=== PATIENT | female | born 1975 | race Caucasian/White ===

== ENCOUNTER 2018-03-13 13:03 | Emergency (ER) | payer MEDICAID ==
[~2018-03-13] VITALS: Ht 162.6 cm; Wt 54.5 kg
[~2018-03-13 13:03] MED LIST: ALBU8.5H8 INH; ASCO500C15 PO; CARV3.122 PO; COU5T PO; DIGO125T78 PO; FURO-150 PO; NITR0.4T48 SL; PRAV40TA3 PO; SPIR25TA5 PO
[2018-03-13 13:18] VITALS: BP 142/82
[2018-03-13] MEDS ORDERED: AMOX-580 PO (13:33)
== END 2018-03-13 13:45 | disposition home or self-care (01) ==
LOC: ER 13:09
DX: K04.7 Periapical abscess without sinus (principal); F12.90 Cannabis use, unspecified, uncomplicated; F15.90 Other stimulant use, unspecified, uncomplicated; I10 Essential (primary) hypertension; J45.909 Unspecified asthma, uncomplicated; Z86.14 Personal history of Methicillin resistant Staphylococcus aureus infection; Z88.1 Allergy status to other antibiotic agents; Z79.899 Other long term (current) drug therapy; Z56.0 Unemployment, unspecified
CPT/HCPCS: 99283

== ENCOUNTER 2018-03-23 05:08 | Emergency (ER) | payer MEDICAID ==
[~2018-03-23] VITALS: Ht 157.5 cm; Wt 61.0 kg
[~2018-03-23 05:08] MED LIST changes: +AMOX-580 PO
[2018-03-23] MEDS ORDERED: HYDROcodone/acetaminophen 10/325mg tab PO ONE (05:25)
[2018-03-23] MEDS ORDERED: ondansetron 4mg rapidly disintigrating tab PO ONE (05:50)
[2018-03-23] MEDS ORDERED: propofol 10mg/ml 20ml vial IV ONE (06:05)
[2018-03-23] MEDS ORDERED: HYDR-3965 PO (07:22)
[2018-03-23] MEDS ORDERED: ketorolac tromethamine 15mg/ml inj. IV ONE (07:25)
[2018-03-23] MEDS ORDERED: MELO-100 PO (07:25)
[2018-03-23 07:50] VITALS: BP 134/79
== END 2018-03-23 08:08 | disposition home or self-care (01) ==
LOC: ER 05:08
DX: S52.612A Displaced fracture of left ulna styloid process, initial encounter for closed fracture (principal); S52.542A Smith's fracture of left radius, initial encounter for closed fracture; I50.9 Heart failure, unspecified; I11.0 Hypertensive heart disease with heart failure; J45.909 Unspecified asthma, uncomplicated; F12.90 Cannabis use, unspecified, uncomplicated; F15.90 Other stimulant use, unspecified, uncomplicated; Z56.0 Unemployment, unspecified; Z88.1 Allergy status to other antibiotic agents; Z79.01 Long term (current) use of anticoagulants; Z79.899 Other long term (current) drug therapy; V29.9XXA Motorcycle rider (driver) (passenger) injured in unspecified traffic accident, initial encounter; Y93.89 Activity, other specified; Y92.89 Other specified places as the place of occurrence of the external cause; Y99.8 Other external cause status
CPT/HCPCS: 25650; 73100; 73110; 96374; 99152; 99285; J1885; J2704; J7030

== ENCOUNTER 2018-03-30 22:00 | Emergency (ER) | payer MEDICAID ==
[~2018-03-30] VITALS: Ht 157.5 cm; Wt 60.0 kg
[~2018-03-30 22:00] MED LIST changes: +HYDR-3965 PO; +MELO-100 PO
[2018-03-31 00:44] VITALS: BP 128/79
== END 2018-03-31 00:47 | disposition home or self-care (01) ==
LOC: ER 22:00
DX: S52.615D Nondisplaced fracture of left ulna styloid process, subsequent encounter for closed fracture with routine healing (principal); S52.542D Smith's fracture of left radius, subsequent encounter for closed fracture with routine healing; I10 Essential (primary) hypertension; J45.909 Unspecified asthma, uncomplicated; I50.9 Heart failure, unspecified; F12.90 Cannabis use, unspecified, uncomplicated; F15.90 Other stimulant use, unspecified, uncomplicated; Z88.1 Allergy status to other antibiotic agents; Z79.899 Other long term (current) drug therapy; Z79.01 Long term (current) use of anticoagulants; Z56.0 Unemployment, unspecified; V19.9XXD Pedal cyclist (driver) (passenger) injured in unspecified traffic accident, subsequent encounter
CPT/HCPCS: 99282; A6449

== ENCOUNTER 2018-04-05 09:21 | Outpatient (CLI) | payer MEDICAID ==
[2018-04-05 09:28] VITALS: BP 123/87
== END 2018-04-05 10:19 | disposition home or self-care (01) ==
LOC: ORTHO 09:21
PROVIDERS: ATTEND Nurse Practitioner Family
DX: S52.542A Smith's fracture of left radius, initial encounter for closed fracture (principal); E11.9 Type 2 diabetes mellitus without complications; E78.00 Pure hypercholesterolemia, unspecified; J44.9 Chronic obstructive pulmonary disease, unspecified; F41.9 Anxiety disorder, unspecified; F17.210 Nicotine dependence, cigarettes, uncomplicated; Z88.8 Allergy status to other drugs, medicaments and biological substances; X58.XXXA Exposure to other specified factors, initial encounter; Y93.89 Activity, other specified; Y92.89 Other specified places as the place of occurrence of the external cause; Y99.8 Other external cause status
CPT/HCPCS: 99215

== ENCOUNTER 2018-04-18 10:19 | Outpatient (CLI) | payer MEDICAID ==
[~2018-04-18] VITALS: Ht 157.5 cm; Wt 61.2 kg
[~2018-04-18 10:19] MED LIST changes: -AMOX-580 PO
[2018-04-18] MEDS ORDERED: NO HOME MEDS (11:21)
[2018-04-18 11:28] LABS: MEAN CORPUSCULAR HGB CONC 30.1 % (33.0-36.5); MEAN CORPUSCULAR VOLUME 56.4 FL (78-98); PRE OP HEMATOCRIT 30.6 % (35.0-45.0); RED BLOOD COUNT 5.43 X10'6 (4.20-5.60); RED CELL DISTRIBUTION WIDTH 22.6 % (11.5-14.5)
[2018-04-18 11:44] LABS: ALBUMIN 3.7 G/DL (3.4-5.0); ALBUMIN/GLOBULIN RATIO 0.9 (1.1-1.5); ALKALINE PHOSPHATASE 95 IU/L (46-116); BLOOD UREA NITROGEN 16 MG/DL (7-18); BUN/CREATININE RATIO 14.8 (6.6-38.0); CHLORIDE 106 MMOL/L (99-107); CREATININE 1.08 MG/DL (0.40-0.90); PRE OP ALT 27 U/L (30-65); PRE OP ANION GAP 10 (8-16); PRE OP AST 29 U/L (10-37); PRE OP BILIRUB, TOTAL 0.4 MG/DL (0.0-1.0); PRE OP GLUCOSE 75 MG/DL (70-104); PRE OP POTASSIUM 3.8 MMOL/L (3.4-5.1); PRE OP SODIUM 142 MMOL/L (135-145); TOTAL CARBON DIOXIDE 25.7 MMOL/L (24-32); eGFR 55 ML/MIN
[2018-04-18 11:46] LABS: PRE OP HEMOGLOBIN 9.2 g/dL (12.0-16.0)
[2018-04-18 11:54] LABS: LARGE PLATELETS FEW; PLATELET ESTIMATE NORMAL; TOTAL CELLS COUNTED 100
[2018-04-18 11:55] LABS: MICROCYTOSIS 3+; TARGET CELLS 1+
[2018-04-18 11:56] LABS: ELLIPTOCYTES 1+; HYPOCHROMASIA 2+
[2018-04-18 11:57] LABS: SCHISTOCYTES 1+
[2018-04-18 11:58] LABS: ANISOCYTOSIS 3+
[2018-04-18 12:02] LABS: PRE OP PLATELET COUNT 327 X10'3 (140-440)
[2018-04-20] MEDS ORDERED: ringers solution, lacted 1,000 ML IV SCH (05:00)
[2018-04-20] MEDS ORDERED: albuterol 2.5 MG/3 ML nebule NEB ONE (05:30)
[2018-04-20] MEDS ORDERED: Cefazolin 2GM/50ML dext iso,osmotic IVPB IV ONE (05:30)
[2018-04-20] MEDS ORDERED: VANCOMYCIN INJ 1000 MG in NORMAL SALINE 250ml IV.SOLN IV ONE (05:30)
[2018-04-20] MEDS ORDERED: famotidine 20mg tablet PO ONE (05:30)
== END 2018-04-18 23:59 | disposition home or self-care (01) ==
LOC: PRE-OP 10:19 → EDSTATUS 04-20 15:45
PROVIDERS: ATTEND Orthopaedic Surgery
DX: Z01.818 Encounter for other preprocedural examination (principal); S52.542A Smith's fracture of left radius, initial encounter for closed fracture; I08.3 Combined rheumatic disorders of mitral, aortic and tricuspid valves; I50.9 Heart failure, unspecified; E78.00 Pure hypercholesterolemia, unspecified; I11.0 Hypertensive heart disease with heart failure; J45.909 Unspecified asthma, uncomplicated; F41.9 Anxiety disorder, unspecified; F17.200 Nicotine dependence, unspecified, uncomplicated; F12.90 Cannabis use, unspecified, uncomplicated; F15.90 Other stimulant use, unspecified, uncomplicated; Z72.89 Other problems related to lifestyle; X58.XXXA Exposure to other specified factors, initial encounter; Y93.89 Activity, other specified; Y92.89 Other specified places as the place of occurrence of the external cause; Y99.8 Other external cause status
CPT/HCPCS: 36415; 71046; 80053; 85025; 93005; 93306; J7120